=== PATIENT | female | born 1940 | race Caucasian/White ===

== ENCOUNTER 2016-12-09 06:33 | Day surgery (SDC) | payer OTHER ==
[2016-12-07 13:44] VITALS: BMI 32.1
[2016-12-09] MEDS ORDERED: BUPIVACAINE HCL/PF 0.5% (5MG/ML) 10 ML VIAL ONE ×2 (07:41→08:18)
[2016-12-09] MEDS ORDERED: LIDOCAINE HCL 1%, 10 MG/ML (20ML VIAL) ONE (07:41)
[2016-12-09] MEDS ORDERED: PROPOFOL 20 ML ONE ×2 (07:46)
[2016-12-09] MEDS ORDERED: SUCCINYLCHOLINE CHLORIDE 200 MG/10 ML VIAL ONE (07:46)
--- NOTE | 2016-12-09 08:10 | HP ---
[facility]ellite [facility] - Chief Complaint Chief Complaint: left hand pain, numbness - Past Medical History Allergies/Adverse Reactions: Allergies Allergy/AdvReac Type Severity Reaction Status Date / Time No Known Allergies Allergy Verified 12/09/16 07:47 - Current Medications Current Medications: Home Medications Medication Instructions Recorded Alprazolam [Xanax] 0.25 mg PO DAILY PRN 12/07/16 Aspirin [ASA -] 81 mg PO DAILY 12/07/16 Hydrocodone/Acetaminophen 1 - 2 each PO Q6H PRN #60 tablet 12/09/16 [Hydrocodon-Acetaminophen 5-300] MDD [facility] Physical Exam - Physical Examination Vital Signs: Vital Signs Period Temp Pulse Resp BP Sys/Steinberg Pulse Ox Last 24 Hr 98.0 F 71 20 116/62 96 General Appearance: Well Nourished, Well Developed, Alert & Oriented x3 ENT: Clear Lung: Normal air movement Heart: Regular rate & rhythm Extremities: Other (left hand- + ttp, + tinels, + phalens emg + cts) Neurological: Intact, Alert, Oriented Satellite Impression/Plan - Impression/Plan Impression: left cts Operative Procedure: left ctr Date to be Performed: 12/09/16
[2016-12-09] MEDS ORDERED: LIDOCAINE HCL/PF 2% SDV 5ML VIAL ONE (08:11)
[2016-12-09] MEDS ORDERED: ceFAZolin SODIUM 1 GM VIAL ONE (08:17)
[2016-12-09] MEDS ORDERED: ceFAZolin SODIUM 1 GM VIAL IVPB ONE (08:19)
--- NOTE | 2016-12-09 08:37 | OP ---
Operative Note - Note: Operative Date: 12/09/16 ([facility]) Pre-Operative Diagnosis: left cts Operation: left ctr Post-Operative Diagnosis: Same as Pre-op Surgeon: Shantanu Plascencia Anesthesiologist/ALUMNI RELATIONS MANAGER: Jonna Vieyra Anesthesia: Local, MAC Estimated Blood Loss (mls): 0 (tourniquet) Operative Report Dictated: Yes
--- NOTE | 2016-12-09 08:59 | OP ---
Operative Note - Note: Operative Date: 12/09/16 Pre-Operative Diagnosis: left CTS Operation: left CTR, tenosynovectomy Post-Operative Diagnosis: Same as Pre-op Surgeon: hSantanu Plascencia Anesthesiologist/UNDERGROUND TRUCK OPERATOR: Jonna Vieyra Anesthesia: General, Local Specimens Removed: tenosynovium Estimated Blood Loss (mls): 0 Blood Volume Replaced (mls): 0 Fluid Volume Replaced (mls): 500 Operative Report Dictated: Yes
[2016-12-09] MEDS ORDERED: ONDANSETRON 4 MG/2 ML VIAL IVPUSH PRN (09:27)
[2016-12-09] MEDS ORDERED: oxyCODONE HCL 5 MG TABLET PO PRN (09:27)
[2016-12-09] MEDS ORDERED: ACETAMINOPHEN 325 MG TABLET (FP) PO ONE (09:27)
[2016-12-09] MEDS ORDERED: LACTATED RINGERS SOLUTION 1,000 ML IV SCH (09:30)
[2016-12-09 10:36] VITALS: TEMP 97.8
[2016-12-09 12:55] VITALS: BP 140/70; PULSE 60
--- NOTE | 2016-12-09 21:05 | OP ---
DATE OF OPERATION: 12/09/2016 PREOPERATIVE DIAGNOSIS: Left carpal tunnel syndrome. POSTOPERATIVE DIAGNOSIS: Left carpal tunnel syndrome. PROCEDURE: Left carpal tunnel release and tenosynovectomy. SURGEON: Shantanu Plascencia MD ASSISTANTS: None. ANESTHESIA: Jonna Vieyra CRNA, MAC anesthesia, local injection of 10 mL 0.5% Marcaine and 1% lidocaine mix. DRAINS: None. COMPLICATIONS: None. SPECIMEN: Tenosynovium, left wrist. BLOOD LOSS: None. BLOOD GIVEN: None. INDICATIONS: This patient is a 76-year-old female with a preoperative diagnosis of a left carpal tunnel syndrome. After understanding the potential risks, complications, alternatives and benefits of surgery versus nonsurgical treatment, the patient elected to undergo this procedure. DESCRIPTION OF PROCEDURE: The patient was brought to the operating room, peripheral IV placed and intravenous sedation was given. One gram of intravenous Ancef was given. MAC anesthesia was induced. A tourniquet was applied to the left upper arm and the left upper extremity was prepped and draped in sterile fashion. The entire case was done under 3.8 loupe magnification. A marking pen was utilized to alfreda out a longitudinal incision in an already existing skin crease. Twenty mL of 0.5% Marcaine mixed with 1% Lidocaine was injected in and around the surgical incision. The left upper extremity was elevated, exsanguinated with an Esmarch bandage and the tourniquet inflated to 250 mmHg. A No. 15 scalpel blade was utilized to cut down through the skin. Subcutaneous hemostasis was achieved with the bipolar cautery. Dissection was done through the superficial palmar fascia. Self-retaining retractors were placed into the wound. Under direct visualization, the transverse carpal ligament was transected with a No. 15 scalpel blade, exposing the median nerve and the contents of the carpal tunnel. The distal and proximal extents of the release were completed with a Littler scissor and checked with irrigation and my small finger. They were seen to be complete. Limited dissection was done on the radial side of the median nerve and more extensive dissection was done on the ulnar side of the median nerve. The patients nerve was seen to be quite compressed by epineurium and therefore a limited epineurotomy was performed. A Ragnell retractor was used to gently retract the median nerve in a radial direction. The patient had a lot of tenosynovitis and therefore a tenosynovectomy was performed off all 9 flexor tendons. This was passed off the field as tenosynovium, left wrist. The floor of the carpal tunnel was checked. There were no abnormal masses or ganglion cysts. The area was copiously irrigated and washed out and closure begun. Undyed 4-0 Vicryl was used to close the deep dermal layer. Final skin reapproximation was done with horizontal mattress 4-0 nylon sutures. The area was then washed and dried, covered with Xeroform, 4x4s, fluffs between the fingers, Webril and a 4-inch plaster roll was utilized to make a volar splint, which was then wrapped with Adeola and Coban. The tourniquet was taken down after a total tourniquet time of 16 minutes. There were no complications during the case. The patient tolerated the procedure well and was brought to the ambulatory recovery room in stable condition. Phyllis [id number]
== END 2016-12-09 11:45 | disposition home or self-care (01) ==
LOC: JASU-SURG 06:33
PROVIDERS: ATTEND Orthopaedic Surgery
PROC: 01N50ZZ Release Median Nerve, Open Approach (ICD-10-PCS; principal; 2016-12-09 08:00)
DX: G56.02 Carpal tunnel syndrome, left upper limb (principal); M65.9 Synovitis and tenosynovitis, unspecified
CPT/HCPCS: 88304-TC; 94760

== ENCOUNTER 2017-02-03 10:41 | Day surgery (SDC) | payer OTHER ==
[2017-02-02 09:34] VITALS: BMI 32.1
--- NOTE | 2017-02-03 12:49 | HP ---
[facility]ellite [facility] - Chief Complaint Chief Complaint: right hand pain/numbness - Past Medical History Allergies/Adverse Reactions: Allergies Allergy/AdvReac Type Severity Reaction Status Date / Time No Known Allergies Allergy Verified 02/02/17 09:25 - Current Medications Current Medications: Home Medications Medication Instructions Recorded Alprazolam [Xanax] 0.25 mg PO PRN PRN 12/07/16 Aspirin [ASA -] 81 mg PO DAILY 12/07/16 Acetaminophen [Tylenol 500 mg PO Q4H PRN 02/02/17 .Extra-Strength -] Hydrocodone/Acetaminophen [Taylor 1 - 2 each PO Q6H #40 tablet MDD 8 02/03/17 5-325 Tablet] Satellite Physical Exam - Physical Examination Vital Signs: Vital Signs Period Temp Pulse Resp BP Sys/Steinberg Pulse Ox Last 24 Hr 97.5 F 71 18 145/61 99 General Appearance: Well Nourished, Well Developed, Alert & Oriented x3 ENT: Clear Lung: Normal air movement Heart: Regular rate & rhythm Extremities: Other (right hand- + tinels, + phalens EMG + cts) Neurological: Intact, Alert, Oriented Satellite Impression/Plan - Impression/Plan Impression: right cts Operative Procedure: right ctr Date to be Performed: 02/03/17
[2017-02-03] MEDS ORDERED: oxyCODONE HCL 5 MG TABLET PO PRN (14:15)
[2017-02-03] MEDS ORDERED: ONDANSETRON 4 MG/2 ML VIAL IVPUSH PRN (14:15)
[2017-02-03] MEDS ORDERED: LACTATED RINGERS SOLUTION 1,000 ML IV SCH (14:15)
[2017-02-03] MEDS ORDERED: BUPIVACAINE HCL/PF 0.5% (5MG/ML) 10 ML VIAL ONE (14:34)
[2017-02-03] MEDS ORDERED: ceFAZolin SODIUM 1 GM VIAL ONE (14:38)
[2017-02-03] MEDS ORDERED: PROPOFOL 20 ML ONE (14:38)
[2017-02-03] MEDS ORDERED: MIDAZOLAM HCL 2 MG/2 ML SINGLE DOSE VIAL ONE (14:38)
[2017-02-03] MEDS ORDERED: ceFAZolin SODIUM 1 GM VIAL IVPB ONE (14:41)
[2017-02-03] MEDS ORDERED: BUPIVACAINE HCL/PF 0.5% (5MG/ML) 10 ML VIAL IJ ONE (14:50)
[2017-02-03] MEDS ORDERED: LIDOCAINE HCL 1%, 10 MG/ML (20ML VIAL) IJ ONE (14:50)
--- NOTE | 2017-02-03 15:12 | OP ---
Operative Note - Note: Operative Date: 02/03/17 Pre-Operative Diagnosis: right carpal tunnel syndrome Operation: right CTR and tenosynovectomy Post-Operative Diagnosis: Same as Pre-op Surgeon: Shantanu Plascencia Anesthesiologist/WOOD MACHINIST APPRENTICE: Ivelisse Yost Anesthesia: General, Local Specimens Removed: tenosynovium Estimated Blood Loss (mls): 0 Drains, Volume Out (mls): 0 Blood Volume Replaced (mls): 0 Fluid Volume Replaced (mls): 500 Operative Report Dictated: Yes
[2017-02-03 15:41] VITALS: TEMP 97.8
--- NOTE | 2017-02-03 15:45 | SPEC ---
DATE OF OPERATION: 02/03/2017 PREOPERATIVE DIAGNOSIS: Right carpal tunnel syndrome and tenosynovitis. POSTOPERATIVE DIAGNOSIS: Right carpal tunnel syndrome and tenosynovitis. OPERATION: Right carpal tunnel release and tenosynovectomy. SURGEON: Shantanu Plascencia M.D. ASSISTANTS: Thomas, Ritika. ANESTHESIA: MAC, local injection with 8 mL of lidocaine/Marcaine mix. ANESTHESIOLOGIST: DRAINS: None. COMPLICATIONS: None. SPECIMENS: Tenosynovium, right wrist. BLOOD LOSS: None. BLOOD GIVEN: None. FLUID REPLACEMENT: 500 mL of Plasmalyte. INDICATIONS: The patient is a 76-year-old female with preoperative diagnosis of severe longstanding right carpal tunnel syndrome. After understanding the potential risks, complications, alternatives and benefits of surgery versus nonsurgical treatment, the patient elected to undergo this procedure. DESCRIPTION OF PROCEDURE: The patient was brought to the operating room, peripheral IV placed and intravenous sedation was given. One gram of intravenous Ancef was given. MAC anesthesia was induced. A tourniquet was applied to the right upper arm and the right upper extremity was prepped and draped in sterile fashion. The entire case was done under 3.8 loupe magnification. A marking pen was utilized to alfreda out a longitudinal incision in an already existing skin crease. Twenty mL of 0.5% Marcaine mixed with 1% Lidocaine was injected in and around the surgical incision. The right upper extremity was elevated, exsanguinated with an Esmarch bandage and the tourniquet inflated to 250 mmHg. A No. 15 scalpel blade was utilized to cut down through the skin. Subcutaneous hemostasis was achieved with the bipolar cautery. Dissection was done through the superficial palmar fascia. Self-retaining retractors were placed into the wound. Under direct visualization, the transverse carpal ligament was transected with a No. 15 scalpel blade, exposing the median nerve and the contents of the carpal tunnel. The distal and proximal extents of the release were completed with a Littler scissor and checked with irrigation and my small finger. They were seen to be complete. Limited dissection was done on the radial side of the median nerve and more extensive dissection was done on the ulnar side of the median nerve. The patients nerve was seen to be quite compressed by epineurium and therefore a limited epineurotomy was performed. A Ragnell retractor was used to gently retract the median nerve in a radial direction. The patient had a lot of tenosynovitis and therefore a tenosynovectomy was performed off all 9 flexor tendons. This was passed off the field as tenosynovium right wrist. The floor of the carpal tunnel was checked. There were no abnormal masses or ganglion cysts. The area was copiously irrigated and washed out and closure begun. Undyed 4-0 Vicryl was used to close the deep dermal layer. Final skin reapproximation was done with horizontal mattress 4-0 nylon sutures. The area was then washed and dried, covered with Xeroform, 4x4s, fluffs between the fingers, Webril and a 4-inch plaster roll was utilized to make a volar splint, which was then wrapped with Adeola and Coban. The tourniquet was taken down after a total tourniquet time of 10 minutes. There were no complications during the case. The patient tolerated the procedure well and was brought to the ambulatory recovery room in stable condition. Phyllis [id number]
[2017-02-03 17:58] VITALS: BP 125/70; PULSE 93
--- NOTE | 2017-02-05 13:32 | PATH ---
Surgical Pathology Report Patient Name: BENOIT FALLON [facility]. Rec. #: [id number] /Age/Gender: 1940 (Age: 76) / F Account: [id number] Location: [facility] SURGICAL Taken: 02/03/2017 Received: 02/04/2017 Reported: 02/05/2017 Physicians: Shantanu Plascencia M.D. Specimen(s) Received TENOSYNOVIUM RIGHT HAND Clinical History Carpal tunnel syndrome right hand Final Diagnosis SOFT TISSUE, RIGHT HAND, TENOSYNOVIUM, CARPAL TUNNEL RELEASE: BENIGN TENOSYNOVIAL FIBROCONNECTIVE TISSUE WITH MYXOID DEGENERATION. Electronically Signed Rusty Edouard M.D. Gross Description Received in formalin labeled "tenosynovium right hand" is a 1.5 x 1.3 x 0.3 cm aggregate of maldonado-yellow, irregular portions of soft tissue. The specimen is submitted in toto in one cassette. /02/04/201702/04/2017
== END 2017-02-03 17:09 | disposition home or self-care (01) ==
LOC: JASU-SURG 10:41
PROVIDERS: ATTEND Orthopaedic Surgery
PROC: 0LB50ZZ Excision of Right Lower Arm and Wrist Tendon, Open Approach (ICD-10-PCS; 2017-02-03)
PROC: 01N50ZZ Release Median Nerve, Open Approach (ICD-10-PCS; principal; 2017-02-03 12:30)
DX: G56.01 Carpal tunnel syndrome, right upper limb (principal); M65.831 Other synovitis and tenosynovitis, right forearm
CPT/HCPCS: 88304-TC; 94760

== ENCOUNTER 2017-06-01 09:20 | Inpatient (IN) | payer OTHER ==
[2017-05-28 13:00] VITALS: BMI 32.1
--- NOTE | 2017-05-31 10:58 | HP ---
[facility] - Chief Complaint Chief Complaint: left knee pain - Past Medical History Allergies/Adverse Reactions: Allergies Allergy/AdvReac Type Severity Reaction Status Date / Time No Known Allergies Allergy Verified 05/28/17 12:39 - Current Medications Current Medications: Home Medications Medication Instructions Recorded Alprazolam [Xanax] 0.25 mg PO PRN PRN 12/07/16 Aspirin [ASA -] 81 mg PO DAILY 12/07/16 Acetaminophen [Tylenol 500 mg PO Q4H PRN 02/02/17 .Extra-Strength -] Levothyroxine [Synthroid -] 25 mcg PO DAILY 05/28/17 Rosuvastatin Calcium [Crestor] 5 mg PO DAILY 05/28/17 [facility] Physical Exam - Physical Examination General Appearance: Well Nourished, Well Developed, Alert & Oriented x3 ENT: Clear Lung: Normal air movement Heart: Regular rate & rhythm Extremities: Other (left knee- + swelling, + ttp, decr rom, nvi xrays show severe tricompartmental djd) Neurological: Intact, Alert, Oriented Satellite Impression/Plan - Impression/Plan Impression: left knee djd Operative Procedure: left jorge tkr Date to be Performed: 06/01/17
[2017-06-01] MEDS ORDERED: oxyCODONE HCL 10 MG SUSTAINED ACTING TABLET PO ONE (09:41)
[2017-06-01] MEDS ORDERED: CEFAZOLIN 1 GM/D5W 50 ML IVPB ONE (09:41)
[2017-06-01] MEDS ORDERED: TRANEXAMIC ACID 1000 MG/10 ML VIAL IVPUSH ONE (09:41)
[2017-06-01] MEDS ORDERED: GABAPENTIN 300 MG CAPSULE (FP) PO ONE (09:41)
[2017-06-01] MEDS ORDERED: CELECOXIB 200 MG CAPSULE PO ONE (09:41)
[2017-06-01] MEDS ORDERED: DEXAMETHASONE SOD PHOSPHATE/PF 10 MG/ML SDV ONE (10:21)
[2017-06-01] MEDS ORDERED: MIDAZOLAM HCL 2 MG/2 ML SINGLE DOSE VIAL ONE (10:22)
[2017-06-01] MEDS ORDERED: VANCOMYCIN 1,000 MG VIAL (RESTRICTED TO ID ONLY) ONE (10:39)
[2017-06-01] MEDS ORDERED: ceFAZolin SODIUM 1 GM VIAL ONE ×2 (10:39→11:31)
[2017-06-01] MEDS ORDERED: BUPIVACAINE HCL/PF 0.5% (5MG/ML) 10 ML VIAL ONE (11:16)
[2017-06-01] MEDS ORDERED: DEXAMETHASONE SOD PHOSPHATE 4 MG/1 ML VIAL ONE (11:31)
[2017-06-01] MEDS ORDERED: TRANEXAMIC ACID 1000 MG/10 ML VIAL ONE (11:31)
[2017-06-01] MEDS ORDERED: ONDANSETRON 4 MG/2 ML VIAL ONE (11:31)
[2017-06-01] MEDS ORDERED: VANCOMYCIN 1,000 MG VIAL (RESTRICTED TO ID ONLY) IVPB ONE (13:07)
[2017-06-01] MEDS ORDERED: ALPRAZolam 0.25 MG TABLET PO PRN ×2 (13:36→15:20)
[2017-06-01] MEDS ORDERED: ONDANSETRON 4 MG/2 ML VIAL IVPUSH PRN (13:37)
[2017-06-01] MEDS ORDERED: MAGNESIUM HYDROX 2400MG/30ML ORAL SUSPENSION 30 ML CUP PO PRN (13:37)
[2017-06-01] MEDS ORDERED: MAG HYDROX/AL HYDROX/SIMETH 30 ML UNIT-DOSE CUP PO PRN (13:37)
--- NOTE | 2017-06-01 13:40 | OP ---
Operative Note - Note: Operative Date: 06/01/17 ([facility]) Pre-Operative Diagnosis: left knee djd Operation: left jorge tkr Post-Operative Diagnosis: Same as Pre-op Surgeon: David Long Grad Intern: Josemanuel Avelar Anesthesiologist/TELEPHONE RECORDER: Anaya Narayanan Anesthesia: Spinal, Local Specimens Removed: bone fragments Estimated Blood Loss (mls): 50 (tourniquet) Operative Report Dictated: Yes
[2017-06-01] MEDS ORDERED: LACTATED RINGERS SOLUTION 1,000 ML IV SCH (13:45)
[2017-06-01] MEDS ORDERED: FAMOTIDINE 20 MG/50 ML IVPB 50 ML IVPB ONE ×2 (14:01→14:34)
[2017-06-01] MEDS ORDERED: FAMOTIDINE 20 MG PREMIXED IVPB IVPB ONE (14:05)
[2017-06-01] MEDS ORDERED: oxyCODONE HCL 5 MG TABLET ONE ×2 (14:45→15:11)
[2017-06-01] MEDS: ACETAMINOPHEN 325 MG TABLET (FP) PO SCH ×3 (14:52→22:14)
[2017-06-01] MEDS: oxyCODONE HCL 5 MG TABLET PO PRN ×2 (15:00→19:57)
[2017-06-01] MEDS: CEFAZOLIN 2 GM/D5W 50 ML IVPB SCH (19:57)
[2017-06-01] MEDS: SENNOSIDES/DOCUSATE COMBO (SENNA PLUS) TABLET (UD) PO SCH (22:14)
[2017-06-01] MEDS: GABAPENTIN 300 MG CAPSULE (FP) PO SCH (22:14)
[2017-06-02] MEDS: ACETAMINOPHEN 325 MG TABLET (FP) PO SCH ×4 (03:32→21:48)
[2017-06-02] MEDS: CEFAZOLIN 2 GM/D5W 50 ML IVPB SCH (03:33)
[2017-06-02] MEDS: LEVOTHYROXINE NA 25 MCG TABLET (FP) PO SCH (06:17)
[2017-06-02] MEDS: ASPIRIN 325 MG TABLET PO SCH (08:35)
[2017-06-02] MEDS: oxyCODONE HCL 5 MG TABLET PO PRN ×4 (08:35→22:20)
--- NOTE | 2017-06-02 08:36 | PN ---
Progress Note (short form) - Note Progress Note: Ortho Pt seen and examined s/p left jorge tkr pod #1 Selected Entries 06/02/17 04:00 Temperature 98.1 F Pulse Rate 80 Respiratory 18 Rate Blood Pressure 124/61 Laboratory Tests 06/02/17 07:00 WBC Pending Hgb Pending Hct Pending Plt Count Pending dressing c/d/i, rom 0-50, calf soft ,nt nvi a/p PT dvt ppx pain control d/c home tomorrow if stable
[2017-06-02 08:37] LABS: MCH 27.1 pg (25.7-33.7); MCHC 32.7 g/dl (32.0-36.0); MEAN PLT VOLUME 9.5 fl (7.5-11.1); PLATELET COUNT 237 K/MM3 (134-434); RDW 13.1 % (11.6-15.6); WHITE BLOOD COUNT 11.1 K/mm3 (4.0-10.8)
--- NOTE | 2017-06-02 09:37 | PN ---
Progress Note (short form) - Note Progress Note: 77F POD1 s/p left TKR under spinal anesthetic with PNBs. Pt states that pain is well controlled, reports no anesthetic complications. Sensory and motor function intact in bilateral lower extremities.
[2017-06-02] MEDS: MULTIVITAMINS (DAILY MVI) TABLET (FP) PO SCH (09:49)
[2017-06-02] MEDS: GABAPENTIN 300 MG CAPSULE (FP) PO SCH ×2 (09:49→21:49)
[2017-06-02] MEDS: PANTOPRAZOLE 40 MG TABLET (FP) PO SCH (09:49)
[2017-06-02] MEDS: ROSUVASTATIN CA 5 MG TABLET (FP) PO SCH (09:49)
[2017-06-02] MEDS: SENNOSIDES/DOCUSATE COMBO (SENNA PLUS) TABLET (UD) PO SCH ×2 (09:49→21:48)
[2017-06-03] MEDS: oxyCODONE HCL 5 MG TABLET PO PRN ×2 (01:22→08:18)
[2017-06-03] MEDS: ACETAMINOPHEN 325 MG TABLET (FP) PO SCH ×2 (02:36→08:17)
[2017-06-03 06:13] VITALS: BP 121/51; PULSE 77; TEMP 99.1
[2017-06-03] MEDS: LEVOTHYROXINE NA 25 MCG TABLET (FP) PO SCH (06:32)
[2017-06-03 07:56] LABS: MCH 27.8 pg (25.7-33.7); MCHC 33.2 g/dl (32.0-36.0); MEAN CELL VOLUME 83.9 fl (80-96); MEAN PLT VOLUME 8.8 fl (7.5-11.1); PLATELET COUNT 214 K/MM3 (134-434); RDW 13.7 % (11.6-15.6); WHITE BLOOD COUNT 11.1 K/mm3 (4.0-10.8)
[2017-06-03] MEDS: ASPIRIN 325 MG TABLET PO SCH (08:13)
--- NOTE | 2017-06-03 08:19 | PN ---
Progress Note (short form) - Note Progress Note: Ortho Pt seen and examined s/p left jorge tkr pod #2 Selected Entries 06/03/17 06:00 Temperature 99.1 F Pulse Rate 77 Respiratory 19 Rate Blood Pressure 121/51 Laboratory Tests 06/03/17 07:00 WBC 11.1 H Hgb 12.1 Hct 36.5 Plt Count 214 dressing c/d/i, rom 0-50, calf soft ,nt nvi a/p PT dvt ppx pain control d/c home today f/u in 1 week
--- NOTE | 2017-06-03 08:20 | DS ---
Physical Examination Vital Signs: Vital Signs Temperature 99.1 F 06/03/17 06:00 Pulse Rate 77 06/03/17 06:00 Respiratory Rate 19 06/03/17 06:00 Blood Pressure 121/51 06/03/17 06:00 O2 Sat by Pulse Oximetry (%) 94 L 06/03/17 06:00 Labs: CBC, BMP 06/03/17 07:00 Discharge Summary Reason For Visit: OSTEOARTHRITIS Procedures: Principal: s/p left jorge tkr Hospital Course: admitted for elective left jorge tkr, uneventful post-op, stable for d/c Condition: Good - Instructions Diet, Activity, Other Instructions: Post-op Instructions-Total Knee Replacement Call the office for a follow-up appointment in 1 week - [phone] Aspirin 325mg daily for 6 weeks. Pain medication was sent into your pharmacy. Apply Graduated Compression Stockings (TEDs) to both lower extremities- remove daily for hygiene ONLY Apply Sequential Compression Device (SCDs) to both Lower extremities remove for PT and hygiene ONLY Apply cold packs to affected area for 15 minutes every 2 hours. Physical Therapist will come to your home for the first 5 days. You will be set up with outpatient PT at your first post-operative visit. Patient may ambulate as tolerated-encourage self care (at least every 2-3 hours while awake) with walker or cane Maintain Aquacel (waterproof) dressing to operative wound (will be removed by surgeon at first office visit) Shower with Aquacel dressing in place-if Aquacel integrity compromised, remove and apply dry sterile dressing and notify Orthopedist. DO NOT SHOWER unless Orthopedists approves without Aquacel dressing CONTACT THE OFFICE FOR ANY CHANGE IN YOUR CONDITION (for example-fever greater than 102 degrees,excessive bleeding from operative site, purulent drainage, severe swelling or pain) GO TO THE EMERGENCY ROOM IF THERE IS A MEDICAL EMERGENCY Knee Precautions: * Keep a rolled towel under affected heel while in bed or chair (to keep knee in extension) * Keep affected leg elevated except during mealtimes * DO NOT PLACE PILLOW UNDER AFFECTED KNEE * If you have any questions, please do not hesitate to call the office - . Referrals: David Long MD [Staff Physician] - Disposition: VNS/HOME HEALTH CARE - Home Medications Comprehensive Discharge Medication List: Ambulatory Orders Alprazolam [Xanax] 0.25 mg PO PRN PRN 12/07/16 Acetaminophen [Tylenol .Extra-Strength -] 500 mg PO Q4H PRN 02/02/17 Levothyroxine [Synthroid -] 25 mcg PO DAILY 05/28/17 Rosuvastatin Calcium [Crestor] 5 mg PO DAILY 05/28/17 Aspirin [ASA -] 325 mg PO DAILY@0800 tablet 06/01/17 Cholecalciferol (Vitamin D3) [Vitamin D3] 2,000 unit PO DAILY 06/01/17 L.acidoph,Paracasei, B.lactis [Probiotic] 1 each PO DAILY 06/01/17 Multivit-Min/Iron/Folic/Lutein [Centrum Silver Women Tablet] 1 tab PO DAILY Oxycodone HCl/Acetaminophen [Percocet 5-325 mg Tablet] 1 - 2 tab PO Q6H #50 tab MDD 8 06/01/17
[2017-06-03] MEDS ORDERED: ONDANSETRON *ODT* 4 MG TABLET SL ONE (08:30)
[2017-06-03] MEDS: SENNOSIDES/DOCUSATE COMBO (SENNA PLUS) TABLET (UD) PO SCH (09:28)
[2017-06-03] MEDS: ROSUVASTATIN CA 5 MG TABLET (FP) PO SCH (09:28)
[2017-06-03] MEDS: MULTIVITAMINS (DAILY MVI) TABLET (FP) PO SCH (09:29)
[2017-06-03] MEDS: PANTOPRAZOLE 40 MG TABLET (FP) PO SCH (09:29)
[2017-06-03] MEDS: GABAPENTIN 300 MG CAPSULE (FP) PO SCH (09:29)
--- NOTE | 2017-06-03 13:49 | PATH ---
Surgical Pathology Report Patient Name: BENOIT FALLON Med. Rec. #: [id number] /Age/Gender: 1940 (Age: 77) / F Account: [id number] Location: [facility] MED-SURG Taken: 06/01/2017 Received: 06/01/2017 Reported: 06/03/2017 Physicians: David Long M.D. Specimen(s) Received LEFT KNEE BONES Clinical History Osteoarthritis left knee Final Diagnosis BONE AND SOFT TISSUE, LEFT KNEE, REPLACEMENT: DEGENERATIVE JOINT DISEASE. Electronically Signed Dong Sandoval M.D. Gross Description Received in formalin labeled "left knee bones," is a 10.0 x 9.0 x 2.0 cm aggregate of multiple maldonado, irregular portions of bone and soft tissue, consistent with knee bones. There are multiple areas of eburnation present, measuring up to 2.3 cm in greatest dimension. The remaining articular surfaces are maldonado-yellow and diffusely granular. The underlying trabecular bone is yellow and hard. Air Control/Anti Air Warfare Officer sections are submitted in one cassette, following decalcification. /06/02/201706/02/2017
--- NOTE | 2017-06-04 12:19 | SPEC ---
DATE OF SERVICE: 06/01/2017 PREOPERATIVE DIAGNOSIS: Degenerative joint disease, left knee. POSTOPERATIVE DIAGNOSIS: Degenerative joint disease, left knee. PROCEDURE: Left total knee replacement with robotic-assisted navigation (Makoplasty). SURGICAL ATTENDING: David Long M.D. PHYSICIAN SCIENTIST: Deejay Cota ANESTHESIA: Regional and spinal. CLOSURE: A cemented 3 femur, 3 tibia, 11 polyethylene, 32 patella, number 1 Vicryl fascia, 0 and 2-0 subcutaneous, 3-0 Monocryl subcuticular with skin glue for skin, 4-0 undyed Vicryl for pin site. ESTIMATED BLOOD LOSS: Negligible. COMPLICATIONS: None. CONDITION: To recovery room in stable condition. DESCRIPTION OF OPERATIVE PROCEDURE: Patient was taken to the operating room on June 01, 2017. Regional and general anesthesia was administered by the anesthesiologist. IV Kefzol and TXA were administered by the anesthesiologist. Well-padded pneumatic tourniquet was placed on the proximal thigh. The left lower extremity was prepped and draped in the usual sterile fashion. The leg was exsanguinated with an Esmarch bandage, and tourniquet was inflated to 275 mmHg. A 12 to 15-cm longitudinal midline incision was incised while centered over the patella. The dissection was carried down to the level of the extensor mechanism with sufficient flaps made to adequately perform the procedure. A medial parapatellar arthrotomy was then performed. We made a cuff of tissue on the patella for later closure. The patella was inverted, the knee was flexed up. The fat pad was excised. The subperiosteal dissection was on the anteromedial proximal tibia around towards the direction of the MCL. The ACL and the PCL were transected and debrided. The meniscal remnants of the medial and lateral meniscus were debrided and removed. This allowed the knee to be able to "be brought forward." The checkpoints were malleted into the tibia and into the femur. Two threaded pins were drilled anteroposteriorly proximal to the knee through the previous incision, through the anterior cortex, then just engaging the posterior cortex. To these pins was assembled the femoral navigation array. One handbreadth below the tibial tubercle, 2 stab incisions were used to drill 2 threaded pins in parallel fashion into the tibia, again through the anterior cortex and just engaging the posterior cortex. To these pins was fastened the tibial arrays. The knee was then registered with the navigation device with center of rotation of the hip, medial and lateral malleoli, both checkpoints, and multiple points on both the femur and the tibia to ensure excellent registration. The navigation device was directed off the "top of the bubbles" on both the femur and the tibia. The navigation passed within less than 0.5 mm to plan. The knee was then thoroughly inspected to remove all osteophytes both medially, laterally, and on the femur and the tibia, and whatever osteophytes were available for dissection. The knee was then taken to extension and to flexion, and stressed in both varus and valgus to assess flexion gaps. The virtual position of the components on the navigation device were then manipulated to optimize the position and to ensure equal gaps in both flexion and extension, and both medially and laterally. The robot was then brought into the field and was registered. The cuts were then made both on the femur and on the tibia as to plan. All osteophytes posteriorly were then removed as well. The gaps were then measured again in flexion and extension to be equal in both flexion and extension and medial and laterally. The femoral notch was then made, as we were doing a posterior stabilizing component, with the appropriate sized box. Trial reduction of the femur achieved excellent [id number] fit. A tibial baseplate of appropriate polyethylene thickness was "floated in the knee." It was ensured to be in the excellent position by navigation devices and was pinned in place. The knee was taken through a range of motion, and found to have excellent stability throughout flexion and extension. The patella was calibrated for thickness and osteotomized down to the appropriate level. The appropriate lollipop was used to drill the lug holes in the patella and the trial button was applied. The knee was taken through a range of motion and found to have excellent tracking of the patella, and patella from full extension to full flexion. Trial components were removed, the keel was punched and drilled, and a sclerotic bone on the tibia was drilled to help with cement interdigitation. The knee was thoroughly irrigated with the pulse antibiotic torts law professor. The real components were then cemented in using monitored arrangement cement techniques with antibiotic cement, and pressurization and extension. After the cement was hardened, the knee was thoroughly inspected to remove any extra cement. The real polyethylene component was then clipped into place. Range of motion, stability, and tracking were as described earlier. The checkpoints and the pins were removed. The knee was thoroughly irrigated with antibiotic irrigation. Vancomycin powder was placed into the knee for antibiotic prophylaxis. The medial parapatellar arthrotomy was then closed using number 1 Vicryl interrupted suture. After closure of the deep layer, the knee was taken through a range of motion, and found to have excellent stability of the patella with no dislocation and no undue tension on the repair. The subcutaneous was pulse antibiotic irrigated, and was then closed with 2-0 Vicryl, 3-0 Monocryl subcuticular with the skin glue for the skin. The distal tibial pin site was irrigated thoroughly as well and then closed with 4-0 undyed Vicryl. A sterile Aquacel dressing was applied, followed by a Camacho dressing. Tourniquet was deflated. Total tourniquet time was approximately 75 minutes. No complications. Patient was awakened from anesthesia and transferred to recovery room in stable condition. Postoperative x-rays revealed excellent position of the components. Phyllis [id number]
== END 2017-06-03 12:07 | disposition home health service (06) | DRG 470 ==
LOC: FM/S 09:20
PROVIDERS: ADMIT Orthopaedic Surgery; ATTEND Orthopaedic Surgery
PROC: 8E0Y0CZ Robotic Assisted Procedure of Lower Extremity, Open Approach (ICD-10-PCS; 2017-06-01)
PROC: 0SRD0J9 Replacement of Left Knee Joint with Synthetic Substitute, Cemented, Open Approach (ICD-10-PCS; principal; 2017-06-01 11:00)
DX: M17.12 Unilateral primary osteoarthritis, left knee (principal); E78.5 Hyperlipidemia, unspecified; E03.9 Hypothyroidism, unspecified; E66.9 Obesity, unspecified; Z68.32 Body mass index [BMI] 32.0-32.9, adult
CPT/HCPCS: 36415; 73560-TC-LT; 85027; 88304-TC; 88311-TC; 94010; 97116-GP; 97162-GP

== ENCOUNTER 2018-02-01 14:58 | Emergency (ER) | payer OTHER ==
[2018-02-01 15:07] VITALS: BP 138/79; PULSE 76; TEMP 98.5; BMI 32.1
[2018-02-01] MEDS ORDERED: DIPHTH,PERTUSS(ACELL),TET 0.5 ML DISP.SYRIN IM ONE (15:43)
--- NOTE | 2018-02-01 15:48 | PDOC ---
History of Present Illness <Danny Munoz - Last Filed: 02/01/18 15:43> - General History Source: Patient Exam Limitations: No Limitations - History of Present Illness Initial Comments: 02/01/18 15:50 The patient is a 77 year old female with a significant past medical history of melanoma, anemia, hyperlipidemia, arthritis, and thyroid problems who presents to the emergency department for evaluation of left hand laceration. The patient reports puncturing the palmar side of her left hand with a knife while cutting an avocado at 12:30pm. She reports mild pain secondary to left hand laceration, with no radiation, ranked 3/10 in severity. She reports an associated symptom of a headache. The patient reports taking medication with mild alleviation to the aforementioned symptoms. She states she was unsure if the laceration was deep and notes that the bleeding was persistent prompting her to visit the emergency department for further evaluation. The patient reports she is currently taking crestor, synthroid, and xanax, but denies use of blood thinners. Of note, the patient is unsure of the date of her last tetanus shot. The patient denies numbness/tingling to extremities, decrease in range of motion of extremities, chest pain, shortness of breath, dizziness, fever, chills, nausea, vomiting, and any urinary/bowel symptoms. Allergies: NKDA. Social History: No reported alcohol, cigarette, or drug use. Surgical History: Carpal tunnel, left knee. <Ganesh Carrillo - Last Filed: 02/01/18 15:51> - General Chief Complaint: Laceration Stated Complaint: LEFT HAND LACERATION Time Seen by Provider: 02/01/18 15:00 Past History - Past Medical History Anemia: No Asthma: No Cancer: Yes (MELANOMA) Cardiac Disorders: No CVA: No COPD: No CHF: No Dementia: No Diabetes: No GI Disorders: No Disorders: No HTN: No Hypercholesterolemia: Yes Liver Disease: No Seizures: No Thyroid Disease: Yes - Surgical History Abdominal Surgery: No Appendectomy: No Cardiac Surgery: No Cholecystectomy: No Lung Surgery: No Neurologic Surgery: No Orthopedic Surgery: Yes (CARPAL TUNNEL RELEASE) - Suicide/Smoking/Psychosocial Hx Smoking History: Never smoked Have you smoked in the past 12 months: No Number of Cigarettes Smoked Daily: 5 If you are a former smoker, when did you quit?: 1979 Information on smoking cessation initiated: No Hx Alcohol Use: No Drug/Substance Use Hx: No Substance Use Type: None Hx Substance Use Treatment: No <Danny Munoz - Last Filed: 02/01/18 15:43> <Ganesh Carrillo - Last Filed: 02/01/18 15:51> - Past Medical History Allergies/Adverse Reactions: Allergies Allergy/AdvReac Type Severity Reaction Status Date / Time No Known Allergies Allergy Verified 02/01/18 14:59 Home Medications: Ambulatory Orders Levothyroxine [Synthroid -] 25 mcg PO DAILY 05/28/17 Rosuvastatin Calcium [Crestor] 5 mg PO DAILY 05/28/17 Cholecalciferol (Vitamin D3) [Vitamin D3] 2,000 unit PO DAILY 06/01/17 Review of Systems - Review of Systems Musculoskeletal: No: Joint Pain, Muscle Pain Integumentary: Yes: See HPI Neurological: No: Tingling, Weakness <Danny Munoz - Last Filed: 02/01/18 15:43> *Physical Exam - Vital Signs Last Vital Signs Temp Pulse Resp BP Pulse Ox 98.5 F 76 18 138/79 96 02/01/18 14:58 02/01/18 14:58 02/01/18 14:58 02/01/18 14:58 02/01/18 14:58 <Danny Munoz - Last Filed: 02/01/18 15:43> - Vital Signs Last Vital Signs Temp Pulse Resp BP Pulse Ox 98.5 F 76 18 138/79 96 02/01/18 14:58 02/01/18 14:58 02/01/18 14:58 02/01/18 14:58 02/01/18 14:58 - Physical Exam Comments: GENERAL: The patient is awake, alert, and fully oriented, in no acute distress. HEAD:[Normal with no signs of trauma. EYES: Pupils equal, round and reactive to light, extraocular movements intact, sclera anicteric, conjunctiva clear. EXTREMITIES: (+)5mm linear puncture wound to left palm over 1st metacarpal. No bleeding. 5/5 flexion and extension of wrist. MCP, PIP, DIP. Otherwise, normal range of motion. No edema. NEUROLOGICAL: Normal speech, normal gait. PSYCH: Normal mood, normal affect. SKIN: Warm, Dry, normal turgor, no rashes or lesions noted. <Ganesh Carrillo - Last Filed: 02/01/18 15:51> ED Treatment Course - Medications Given in the ED: ED Medications Discontinued Medications Generic Name Dose Route Start Last Admin Trade Name Yuly PRN Reason Stop Dose Admin Diphtheria/Tetanus/Acell Pertussis 0.5 ml 02/01/18 15:43 02/01/18 15:46 Boostrix - IM 02/01/18 15:44 0.5 ml .ONCE ONE Administration <Ganesh Carrillo - Last Filed: 02/01/18 15:51> Medical Decision Making - Medical Decision Making 02/01/18 15:43 A portion of this note was documented by scribe services under my direction. I have reviewed the details of the note, within reason, and agree with the documentation with the following case summary and management plan written by me. 77-year-old female presents with left palm laceration after she accidentally punctured herself with a knife while cutting an avocado. Was able to attempt to obtain hemostasis with pressure, irrigated the wound with water and hydrogen peroxide at home, presents for evaluation. No motor or sensory deficits, does not recall her last tetanus, no other injuries. Vital signs normal. Left hand: There is a 5 mm puncture laceration that is superficial but through dermis, no deep tissue exposure or injury. No foreign body detected, neurovascularly intact with 5 out of 5 strength. Puncture wound to the left palm without deep tissue exposure or neurovascular injury. Tetanus updated LACERATION REPAIR: The skin was cleansed with saline. Normal saline lavage was performed. The skin edges were carefully opposed. Indermil skin glue was used for closure with a good result. The patient was advised regarding observation for signs and symptoms of infection, care for a laceration after Indermil closure, and indications for immediate follow up with a physician. <Danny Munoz - Last Filed: 02/01/18 15:43> *DC/Admit/Observation/Transfer <Danny Munoz - Last Filed: 02/01/18 15:43> - Attestations Scribe Attestion: Documentation prepared by Ganesh Carrillo, acting as biomedical equipment technician for Danny Munoz MD. <Ganesh Carrillo - Last Filed: 02/01/18 15:51> Diagnosis at time of Disposition: Laceration of palm Qualifiers: Encounter type: initial encounter Laterality: left Qualified Code(s): S61.412A - Laceration without foreign body of left hand, initial encounter - Discharge Dispostion Disposition: HOME Condition at time of disposition: Improved - Patient Instructions Printed Discharge Instructions: DI for Laceration Repair With Dermabond Additional Instructions: Activity as tolerated. Stay hydrated. Maintain dressing until tonight, then can remove including the Band-Aid. Keep the wound completely clean and dry for 48 hours, avoid soaking or scrubbing. Continue your medications as previously prescribed by your physician. Your tetanus vaccination was updated today. You should follow up with your primary doctor as needed regarding today's emergency department visit. Return to the emergency department for any new or concerning symptoms, particularly redness or swelling, pus or pain, bleeding or numbness.
== END 2018-02-01 16:00 | disposition home or self-care (01) ==
LOC: FER 14:58
PROC: 3E0234Z Introduction of Serum, Toxoid and Vaccine into Muscle, Percutaneous Approach (ICD-10-PCS; principal; 2018-02-01)
PROC: 0HQGXZZ Repair Left Hand Skin, External Approach (ICD-10-PCS; 2018-02-01)
DX: S61.412A Laceration without foreign body of left hand, initial encounter (principal); W26.0XXA Contact with knife, initial encounter; Y93.G1 Activity, food preparation and clean up; Y92.000 Kitchen of unspecified non-institutional (private) residence as the place of occurrence of the external cause
CPT/HCPCS: 12002; 90471; 90715; 99284-25

== ENCOUNTER 2020-11-17 04:58 | Emergency (ER) | payer OTHER ==
[2020-11-17 05:07] VITALS: PULSE 66; TEMP 98.6; BMI 30.9
[2020-11-17] MEDS ORDERED: cloNIDine HCL 0.1 MG TABLET PO ONE (05:20)
[2020-11-17] MEDS ORDERED: cloNIDine HCL 0.1 MG TABLET ONE (05:26)
[2020-11-17 05:47] VITALS: BP 155/87
== END 2020-11-17 05:47 | disposition home or self-care (01) ==
LOC: FER 04:58
DX: I10 Essential (primary) hypertension (principal)
CPT/HCPCS: 99284-25; J0735

== ENCOUNTER 2021-05-13 06:13 | Inpatient (IN) | payer OTHER ==
[2021-05-12 09:18] VITALS: BMI 30.2
[2021-05-13] MEDS ORDERED: TRANEXAMIC ACID 1000 MG/10 ML VIAL IVPUSH ONE (06:40)
[2021-05-13] MEDS ORDERED: CEFAZOLIN 2 GM in DEXTROSE 5%-WATER - 50 ML IVPB ONE (06:40)
[2021-05-13] MEDS: CELECOXIB 200 MG CAPSULE PO ONE ×2 (06:50→13:01)
[2021-05-13] MEDS ORDERED: BUPIVACAINE LIPOSOME/PF (EXPAREL) 266 MG/20 ML VIAL ONE (07:06)
[2021-05-13] MEDS ORDERED: SODIUM CHLORIDE 0.9% P/F 10 ML VIAL IJ ONE (07:06)
[2021-05-13] MEDS ORDERED: BUPIVACAINE HCL/PF 0.5% (5MG/ML) 10 ML VIAL ONE (07:06)
[2021-05-13] MEDS ORDERED: MIDAZOLAM HCL 2 MG/2 ML SINGLE DOSE VIAL ONE (07:06)
[2021-05-13] MEDS ORDERED: PROPOFOL 20 ML ONE ×2 (07:19)
[2021-05-13] MEDS ORDERED: SUCCINYLCHOLINE CHLORIDE 200 MG/10 ML SYRINGE ONE (07:20)
[2021-05-13] MEDS ORDERED: ePHEDrine SULFATE 50 MG/1 ML AMPULE ONE (07:23)
[2021-05-13] MEDS ORDERED: ceFAZolin SODIUM 1 GM VIAL ONE (07:35)
[2021-05-13] MEDS ORDERED: VANCOMYCIN 1,000 MG VIAL (RESTRICTED TO ID ONLY) ONE (07:35)
[2021-05-13] MEDS ORDERED: ALPRAZolam 0.25 MG TABLET PO PRN (07:54)
[2021-05-13] MEDS ORDERED: MAGNESIUM HYDROX 2400MG/30ML ORAL SUSPENSION 30 ML CUP PO PRN (07:54)
[2021-05-13] MEDS ORDERED: MAG HYDROX/AL HYDROX/SIMETH 30 ML UNIT-DOSE CUP PO PRN (07:54)
[2021-05-13] MEDS ORDERED: LACTATED RINGERS SOLUTION 1,000 ML IV SCH (08:00)
[2021-05-13] MEDS ORDERED: ONDANSETRON 4 MG/2 ML VIAL IVPUSH PRN (10:26)
[2021-05-13] MEDS ORDERED: ACETAMINOPHEN 1000 MG/100 ML VIAL IVPB ONE (13:00)
[2021-05-13] MEDS: SENNOSIDES/DOCUSATE COMBO (SENNA PLUS) TABLET (UD) PO SCH ×2 (13:01→21:55)
[2021-05-13] MEDS: ESCITALOPRAM OXALATE 20 MG TABLET PO SCH (13:01)
[2021-05-13] MEDS: LORATADINE 10 MG TABLET PO SCH (13:01)
[2021-05-13] MEDS: PANTOPRAZOLE 40 MG TABLET PO SCH (13:02)
[2021-05-13] MEDS: MULTIVITAMINS (DAILY MVI) TABLET (FP) PO SCH (13:02)
[2021-05-13] MEDS: oxyCODONE HCL 5 MG TABLET PO PRN ×2 (14:56→20:06)
[2021-05-13] MEDS ORDERED: CEFAZOLIN 2 GM in DEXTROSE 5%-WATER - 50 ML IVPB SCH (16:00)
[2021-05-13] MEDS: CEFAZOLIN 2 GM in DEXTROSE 5%-WATER - 100 ML IVPB SCH ×2 (17:02→23:51)
[2021-05-13] MEDS: ACETAMINOPHEN 500 MG TABLET (FP) PO SCH (20:07)
[2021-05-13] MEDS: MONTELUKAST NA 10 MG TABLET PO SCH (21:55)
[2021-05-13] MEDS: ROSUVASTATIN CA 5 MG TABLET (FP) PO SCH (21:55)
[2021-05-14] MEDS: oxyCODONE HCL 5 MG TABLET PO PRN ×4 (01:10→20:05)
[2021-05-14] MEDS: ACETAMINOPHEN 500 MG TABLET (FP) PO SCH ×4 (04:01→21:20)
[2021-05-14] MEDS: LEVOTHYROXINE NA 50 MCG TABLET (FP) PO SCH (06:54)
[2021-05-14 08:04] LABS: HEMATOCRIT 34.6 % (32.4-45.2); HEMOGLOBIN 11.2 GM/dl (10.7-15.3); MCH 26.9 pg (25.7-33.7); MCHC 32.3 g/dl (32.0-36.0); MEAN CELL VOLUME 83.5 fl (80-96); MEAN PLT VOLUME 8.5 fl (7.5-11.1); PLATELET COUNT 202 10^3/uL (134-434); RBC 4.14 M/mm3 (3.60-5.2); RDW 13.2 % (11.6-15.6)
[2021-05-14] MEDS: ASPIRIN 325 MG TABLET PO SCH (08:05)
[2021-05-14] MEDS: SENNOSIDES/DOCUSATE COMBO (SENNA PLUS) TABLET (UD) PO SCH ×2 (09:38→21:22)
[2021-05-14] MEDS: PANTOPRAZOLE 40 MG TABLET PO SCH (09:38)
[2021-05-14] MEDS: LORATADINE 10 MG TABLET PO SCH (09:39)
[2021-05-14] MEDS: LISINOPRIL 5 MG TABLET PO SCH (09:39)
[2021-05-14] MEDS: MULTIVITAMINS (DAILY MVI) TABLET (FP) PO SCH (09:39)
[2021-05-14] MEDS: ESCITALOPRAM OXALATE 20 MG TABLET PO SCH (09:39)
[2021-05-14] MEDS: ROSUVASTATIN CA 5 MG TABLET (FP) PO SCH (21:21)
[2021-05-14] MEDS: MONTELUKAST NA 10 MG TABLET PO SCH (21:23)
[2021-05-15] MEDS: oxyCODONE HCL 5 MG TABLET PO PRN ×3 (00:51→06:13)
[2021-05-15] MEDS: ACETAMINOPHEN 500 MG TABLET (FP) PO SCH ×3 (04:04→16:36)
[2021-05-15] MEDS: LEVOTHYROXINE NA 50 MCG TABLET (FP) PO SCH (06:13)
[2021-05-15 08:10] LABS: HEMATOCRIT 34.8 % (32.4-45.2); HEMOGLOBIN 11.2 GM/dl (10.7-15.3); MCH 27.1 pg (25.7-33.7); MCHC 32.1 g/dl (32.0-36.0); MEAN CELL VOLUME 84.6 fl (80-96); MEAN PLT VOLUME 8.7 fl (7.5-11.1); PLATELET COUNT 193 10^3/uL (134-434); RBC 4.12 M/mm3 (3.60-5.2); RDW 13.3 % (11.6-15.6); WHITE BLOOD COUNT 9.5 K/mm3 (4.0-10.8)
[2021-05-15 08:27] VITALS: PULSE 77
[2021-05-15] MEDS: ASPIRIN 325 MG TABLET PO SCH (08:57)
[2021-05-15] MEDS: KETOROLAC TROMETHAMINE 30 MG/1 ML VIAL IVPUSH SCH ×2 (08:58→13:57)
[2021-05-15] MEDS: PANTOPRAZOLE 40 MG TABLET PO SCH (09:19)
[2021-05-15] MEDS: MULTIVITAMINS (DAILY MVI) TABLET (FP) PO SCH (09:19)
[2021-05-15] MEDS: LISINOPRIL 5 MG TABLET PO SCH (09:19)
[2021-05-15] MEDS: LORATADINE 10 MG TABLET PO SCH (09:19)
[2021-05-15] MEDS: SENNOSIDES/DOCUSATE COMBO (SENNA PLUS) TABLET (UD) PO SCH (09:19)
[2021-05-15] MEDS: ESCITALOPRAM OXALATE 20 MG TABLET PO SCH (09:20)
[2021-05-15 14:13] VITALS: BP 100/48; TEMP 97.9
== END 2021-05-15 16:59 | disposition home health service (06) | DRG 470 ==
LOC: FM/S 06:13
PROVIDERS: ADMIT Orthopaedic Surgery; ATTEND Orthopaedic Surgery
PROC: 8E0Y0CZ Robotic Assisted Procedure of Lower Extremity, Open Approach (ICD-10-PCS; 2021-05-13)
PROC: 0SRD0J9 Replacement of Left Knee Joint with Synthetic Substitute, Cemented, Open Approach (ICD-10-PCS; principal; 2021-05-13 08:53)
DX: M17.12 Unilateral primary osteoarthritis, left knee (principal); K30 Functional dyspepsia; E78.5 Hyperlipidemia, unspecified; I10 Essential (primary) hypertension
CPT/HCPCS: 36415; 73560-TC-RT-FY; 82550; 82553; 84484; 85027; 93005; 94760; 97010-GP; 97116-GP; 97161-GP; J0131

== ENCOUNTER 2022-04-20 22:14 | Emergency (ER) | payer BC, OTHER ==
[2022-04-20 22:21] VITALS: BP 162/59; PULSE 96; RESP 17; TEMP 98.3; BMI 29.0
[2022-04-20] MEDS ORDERED: LISINOPRIL 5 MG TABLET ONE (22:38)
[2022-04-20] MEDS ORDERED: LISINOPRIL 5 MG TABLET PO ONE (22:42)
== END 2022-04-20 22:53 | disposition home or self-care (01) ==
LOC: FER 22:14
DX: I10 Essential (primary) hypertension (principal)
CPT/HCPCS: 99283-25

== ENCOUNTER 2022-04-25 16:54 | Emergency (ER) | payer BC ==
[2022-04-25 17:06] VITALS: BP 133/60; PULSE 72; RESP 19; TEMP 97.9; BMI 28.3
== END 2022-04-25 18:00 | disposition home or self-care (01) ==
LOC: FER 16:54
DX: I10 Essential (primary) hypertension (principal)
CPT/HCPCS: 99282-25

== ENCOUNTER 2022-06-25 20:37 | Emergency (ER) | payer BC ==
[2022-06-25 21:04] VITALS: BP 156/68; PULSE 73; RESP 18; TEMP 98.1; BMI 28.3
[2022-06-25] MEDS ORDERED: ALPRAZolam 0.25 MG TABLET PO ONE (21:41)
[2022-06-25] MEDS ORDERED: ALPRAZolam 0.25 MG TABLET ONE (21:48)
== END 2022-06-25 22:47 | disposition home or self-care (01) ==
LOC: FER 20:37
DX: F41.9 Anxiety disorder, unspecified (principal)
CPT/HCPCS: 99283-25

== ENCOUNTER 2022-07-15 12:08 | Emergency (ER) | payer BC ==
[2022-07-15 13:15] VITALS: BP 157/82; PULSE 81; RESP 18; TEMP 98.7; BMI 28.3
== END 2022-07-15 15:47 | disposition home or self-care (01) ==
LOC: FER 12:08
DX: F41.9 Anxiety disorder, unspecified (principal)
CPT/HCPCS: 99282-25

== ENCOUNTER 2023-09-15 15:26 | Emergency (ER) | payer BC ==
[2023-09-15 15:55] VITALS: BP 155/89; PULSE 87; RESP 18; TEMP 97.9; BMI 27.1
[2023-09-15 16:38] LABS: HEMATOCRIT 37.4 % (32.4-45.2); HEMOGLOBIN 12.6 G/dL (10.7-15.3); MCH 28.1 pg (25.7-33.7); MCHC 33.7 g/dl (32.0-36.0); MEAN CELL VOLUME 83.3 fl (80-96); PLATELET COUNT 293.7 10^3/uL (134-434); RBC 4.49 10^6/uL (3.60-5.2); RDW 15.4 % (11.6-15.6); WHITE BLOOD COUNT 9.8 10^3/uL (4.0-10.8)
[2023-09-15 16:52] LABS: PLATELET ESTIMATE ADEQUATE
[2023-09-15 17:00] LABS: ALBUMIN 4.3 g/dl (3.4-5.0); BILIRUBIN,TOTAL 0.6 mg/dl (0.2-1); CALCIUM 9.9 mg/dl (8.5-10.1); CREATININE 0.7 mg/dl (0.6-1.3); POTASSIUM 4.4 mmol/L (3.5-5.1); TOT PROT 6.9 g/dl (6.4-8.2)
== END 2023-09-15 18:28 | disposition home or self-care (01) ==
LOC: FER 15:26
DX: R06.02 Shortness of breath (principal); Z20.822 Contact with and (suspected) exposure to COVID-19
CPT/HCPCS: 0241U-QW; 36415; 71046-TC-FY; 80053; 84484; 85027; 93005; 99285-25

== ENCOUNTER 2023-09-20 17:12 | Emergency (ER) | payer BC ==
[2023-09-20 17:43] VITALS: TEMP 97.9; BMI 27.1
[2023-09-20 18:55] LABS: HEMATOCRIT 37.5 % (32.4-45.2); HEMOGLOBIN 12.5 G/dL (10.7-15.3); MCHC 33.4 g/dl (32.0-36.0); MEAN CELL VOLUME 83.9 fl (80-96); MEAN PLT VOLUME 8.3 fl (7.5-11.1); PLATELET COUNT 257.4 10^3/uL (134-434); RBC 4.47 10^6/uL (3.60-5.2); RDW 14.6 % (11.6-15.6); WHITE BLOOD COUNT 9.7 10^3/uL (4.0-10.8)
[2023-09-20 19:03] LABS: ALBUMIN 4.4 g/dl (3.4-5.0); BILIRUBIN,TOTAL 0.6 mg/dl (0.2-1); CALCIUM 9.6 mg/dl (8.5-10.1); CREATININE 0.8 mg/dl (0.6-1.3); POTASSIUM 4.1 mmol/L (3.5-5.1); TOT PROT 6.9 g/dl (6.4-8.2)
[2023-09-20 19:27] LABS: EPITHELIAL CELLS 0-5 /hpf
[2023-09-20 19:37] LABS: PLATELET ESTIMATE ADEQUATE
[2023-09-20 20:12] VITALS: BP 121/65; PULSE 62; RESP 16
== END 2023-09-20 20:35 | disposition home or self-care (01) ==
LOC: FER 17:12
DX: U07.1 COVID-19 (principal); R09.81 Nasal congestion; R06.02 Shortness of breath; R42 Dizziness and giddiness
CPT/HCPCS: 0241U-QW; 36415; 71046-TC-FY; 80053; 81003; 81015; 84484; 85027; 87086; 93005; 99285-25

== ENCOUNTER 2023-10-04 11:12 | Emergency (ER) | payer BC ==
[2023-10-04 11:27] VITALS: BMI 27.1
[2023-10-04 12:02] LABS: HEMATOCRIT 38.1 % (32.4-45.2); HEMOGLOBIN 12.7 G/dL (10.7-15.3); MCH 28.5 pg (25.7-33.7); MCHC 33.3 g/dl (32.0-36.0); MEAN CELL VOLUME 85.6 fl (80-96); MEAN PLT VOLUME 8.2 fl (7.5-11.1); PLATELET COUNT 259.9 10^3/uL (134-434); RBC 4.45 10^6/uL (3.60-5.2); RDW 15.5 % (11.6-15.6)
[2023-10-04 12:20] LABS: ALBUMIN 3.9 g/dl (3.4-5.0); BILIRUBIN,TOTAL 0.6 mg/dl (0.2-1); CALCIUM 9.3 mg/dl (8.5-10.1); CREATININE 0.8 mg/dl (0.6-1.3); POTASSIUM 3.8 mmol/L (3.5-5.1); TOT PROT 6.5 g/dl (6.4-8.2)
[2023-10-04 15:38] VITALS: BP 121/58; PULSE 70; RESP 16; TEMP 98
== END 2023-10-04 15:20 | disposition home or self-care (01) ==
LOC: FER 11:12
DX: R06.02 Shortness of breath (principal); Z20.822 Contact with and (suspected) exposure to COVID-19
CPT/HCPCS: 0241U-QW; 36415; 71045-TC-FY; 80053; 84484; 85027; 93005; 99285-25

== ENCOUNTER 2024-03-15 15:42 | Emergency (ER) | payer BC ==
[2024-03-15 16:29] VITALS: BP 125/71; PULSE 68; RESP 16; TEMP 97.8; BMI 27.4
[2024-03-15] MEDS ORDERED: DIPHTH,PERTUSS(ACELL),TET 0.5 ML DISP.SYRIN IM ONE (16:37)
[2024-03-15] MEDS ORDERED: ACETAMINOPHEN 325 MG TABLET (FP) ONE (16:37)
[2024-03-15] MEDS: DIPHTH,PERTUSS(ACELL),TET 0.5 ML DISP.SYRIN IM ONE (16:42)
[2024-03-15] MEDS: ACETAMINOPHEN 500 MG TABLET (FP) PO ONE (16:43)
== END 2024-03-15 18:36 | disposition home or self-care (01) ==
LOC: FER 15:42
PROC: 3E0234Z Introduction of Serum, Toxoid and Vaccine into Muscle, Percutaneous Approach (ICD-10-PCS; principal; 2024-03-15)
DX: S00.31XA Abrasion of nose, initial encounter (principal); S00.81XA Abrasion of other part of head, initial encounter; W01.198A Fall on same level from slipping, tripping and stumbling with subsequent striking against other object, initial encounter; Z23 Encounter for immunization
CPT/HCPCS: 70450-TC; 70486-TC; 72125-TC; 90471; 90715; 99284-25

== ENCOUNTER 2024-06-22 15:33 | Observation (INO) | payer BC ==
[2024-06-22 16:58] LABS: HEMATOCRIT 40.4 % (32.4-45.2); HEMOGLOBIN 13.2 G/dL (10.7-15.3); MCHC 32.8 g/dl (32.0-36.0); MEAN CELL VOLUME 82.5 fl (80-96); MEAN PLT VOLUME 8.5 fl (7.5-11.1); PLATELET COUNT 262.6 10^3/uL (134-434); RDW 15.4 % (11.6-15.6); WHITE BLOOD COUNT 12.6 10^3/uL (4.0-10.8)
[2024-06-22 17:23] LABS: ALBUMIN 4.4 g/dl (3.4-5.0); BILIRUBIN,TOTAL 0.9 mg/dl (0.2-1); CALCIUM 9.6 mg/dl (8.5-10.1); CREATININE 1.2 mg/dl (0.6-1.3); POTASSIUM 4.1 mmol/L (3.5-5.1); TOT PROT 6.8 g/dl (6.4-8.2)
[2024-06-22 17:34] LABS: PLATELET ESTIMATE ADEQUATE
[2024-06-22] MEDS ORDERED: cefTRIAXone SODIUM 1 GM VIAL ONE (22:20)
[2024-06-22 22:27] LABS: CALCIUM OXALATE CRYSTALS FEW /hpf (NONE SEEN); URIC ACID CRYSTALS FEW /hpf (NONE SEEN)
[2024-06-22] MEDS: CEFTRIAXONE 1 GM in DEXTROSE 5%-WATER - 100 ML IVPB ONE (22:36)
[2024-06-22] MEDS ORDERED: ACETAMINOPHEN 325 MG TABLET (FP) PO PRN (23:27)
[2024-06-22] MEDS ORDERED: DOCUSATE SODIUM 100 MG CAPSULE (FP) PO PRN (23:27)
[2024-06-23 00:29] VITALS: RESP 18
[2024-06-23] MEDS: DEXTROSE 5%-0.45% SALINE 1,000 ML IV SCH (02:57)
[2024-06-23] MEDS: LEVOTHYROXINE NA 100 MCG TABLET (FP) PO SCH (06:32)
[2024-06-23 07:55] LABS: HEMATOCRIT 36.9 % (32.4-45.2); MCH 27.1 pg (25.7-33.7); MCHC 32.4 g/dl (32.0-36.0); MEAN CELL VOLUME 83.4 fl (80-96); MEAN PLT VOLUME 8.7 fl (7.5-11.1); PLATELET COUNT 248.1 10^3/uL (134-434); RBC 4.42 10^6/uL (3.60-5.2); RDW 14.7 % (11.6-15.6); WHITE BLOOD COUNT 8.6 10^3/uL (4.0-10.8)
[2024-06-23] MEDS: SODIUM CHLORIDE 1,000 ML IV SCH (08:15)
[2024-06-23 08:25] LABS: CALCIUM 8.9 mg/dl (8.5-10.1); CREATININE 0.8 mg/dl (0.6-1.3); MAGNESIUM 1.9 mg/dL (1.8-2.4); PHOSPHOROUS 3.1 (2.5-4.9); POTASSIUM 3.6 mmol/L (3.5-5.1)
[2024-06-23] MEDS: HEPARIN NA (PORCINE) 5,000 UNITS/ML 1ML VIAL SQ SCH (10:02)
[2024-06-23] MEDS: ESCITALOPRAM OXALATE 10 MG TABLET PO SCH (10:02)
[2024-06-23] MEDS: CEFTRIAXONE 1 GM in DEXTROSE 5%-WATER - 50 ML IVPB SCH (10:02)
[2024-06-23 10:24] VITALS: BP 132/66; PULSE 66; TEMP 98.1
[2024-06-23 13:58] VITALS: BMI 33.5
[2024-06-23] MEDS ORDERED: MONTELUKAST NA 10 MG TABLET PO SCH (22:00)
[2024-06-23] MEDS ORDERED: ROSUVASTATIN CA 5 MG TABLET PO SCH (22:00)
== END 2024-06-23 01:30 | disposition home or self-care (01) ==
LOC: FER 15:33 → INTOOBSV 21:26 → FM/S 21:26
PROVIDERS: ADMIT Internal Medicine; ATTEND Internal Medicine
PROC: 3E03329 Introduction of Other Anti-infective into Peripheral Vein, Percutaneous Approach (ICD-10-PCS; principal; 2024-06-22)
PROC: 3E023GC Introduction of Other Therapeutic Substance into Muscle, Percutaneous Approach (ICD-10-PCS; 2024-06-22)
PROC: 3E033GC Introduction of Other Therapeutic Substance into Peripheral Vein, Percutaneous Approach (ICD-10-PCS; 2024-06-22)
PROC: 3E0337Z Introduction of Electrolytic and Water Balance Substance into Peripheral Vein, Percutaneous Approach (ICD-10-PCS; 2024-06-22)
DX: N39.0 Urinary tract infection, site not specified (principal); I10 Essential (primary) hypertension; E03.9 Hypothyroidism, unspecified; Z96.653 Presence of artificial knee joint, bilateral; F32.3 Major depressive disorder, single episode, severe with psychotic features; R79.89 Other specified abnormal findings of blood chemistry; R29.6 Repeated falls; D72.829 Elevated white blood cell count, unspecified; G93.41 Metabolic encephalopathy; N17.9 Acute kidney failure, unspecified; E86.0 Dehydration
CPT/HCPCS: 36415; 70450-TC; 71045-TC-FY; 72125-TC; 72170-TC-FY; 80048; 80053; 81003; 81015; 83735; 84100; 84439; 84443; 84484; 85027; 87086; 87186; 93005; 96361; 96365; 96366; 96367; 96372; 97116-GP; 97162-GP; 99285-25; G0378; J1644